=== PATIENT | male | born 1945 | race Caucasian/White ===

== ENCOUNTER 2016-09-01 11:02 | Emergency (ER) | payer MEDICARE, OTHER ==
[~2016-09-01 11:02] MED LIST: ALIGN4 MG PO; BAC PO; BENTYL10 PO; CONSTULOSE PO; FERROUS SULF325 M1 PO; FLEX PO; GLUCOPHXR PO; I20 PO; MULTIPLE VIT PO; MULTIVITAMI1 PO; NEO500 PO; OXYCOD PO; PR25 PO; PRILOSEC40 MG PO; PROBIOTIC PO; PROBIOTICS; ULTRAM50 PO; VIT B-SIX 50 MG50 MG PO; VITAMIN B-121000 MC1 SL; VITAMIN C PO; VITAMIN D1000 UNI1 PO; VITC500 PO; XIFAXAN550 MG PO; ZEGERID1 CA1 PO
[2016-09-01 12:06] LABS: BASOPHILS 0.8 %; BASOPHILS ABSOLUTE 0.03 10/3/uL (0.0-0.16); EOSINOPHILS 5.1 %; HEMATOCRIT 39.5 % (40.0-51.0); HEMOGLOBIN 13.8 g/dL (13.6-17.8); LYMPHOCYTES 34.4 %; LYMPHOCYTES ABSOLUTE 1.35 10/3/uL (0.67-4.30); MEAN CORPUS HGB CONC 34.9 g/dL (32.0-36.0); MEAN CORPUSCULAR HEMOGLOB 32.2 pg (26.0-34.0); MEAN CORPUSCULAR VOLUME 92.1 fL (80-100); MONOCYTES 7.9 %; MONOCYTES ABSOLUTE 0.31 10/3/uL (0.21-1.20); NEUTROPHILS 51.8 %; NEUTROPHILS ABSOLUTE 2.03 10/3/uL (2.02-8.40); PLATELET COUNT 62 10/3/uL (150-400); RBC DISTRIBUTION WIDTH 13.8 % (12.0-16.0); RED CELL COUNT 4.29 10/6/uL (4.7-6.1); WHITE BLOOD CELLS 3.9 10/3/uL (4.5-10.5)
[2016-09-01 12:07] LABS: MANUAL DIFF NO %
[2016-09-01 12:12] LABS: INTERNATIONAL NORMAL RATI 1.4 UNITS (-); PARTIAL THROMBO TIME 36.7 SEC (22.5-37.2)
[2016-09-01 12:22] LABS: BUN (BLOOD UREA NITROGEN) 11 MG/DL (6-23); CALCIUM, SERUM 9.1 MG/DL (8.5-10.4); CHLORIDE, SERUM 104 MMOL/L (96-112); CO2 (CARBON DIOXIDE) 29 MMOL/L (24-34); CREATININE 1.11 MG/DL (0.70-1.30); GFR AFRICAN AMERICAN 78 ML/MIN (>=60); GFR NON AFRICAN AMERICAN 67 ML/MIN (>=60); SODIUM, SERUM 141 MMOL/L (135-148)
[2016-09-01 12:23] LABS: GLUCOSE, SERUM 170 MG/DL (60-99)
[2016-09-01 12:25] LABS: CHEST PAIN PROFILE TAT 0 Hrs 25 Mins; TROPONIN I 0.05 NG/ML (<0.05)
[2016-09-01 12:38] LABS: PLATELET ESTIMATE DEC (ADEQUATE); RBC MORPHOLOGY NORM (NORMAL)
[2016-12-24] MEDS ORDERED: XIFAXAN550 MG PO (22:31)
[2016-12-24] MEDS ORDERED: CONSTULOSE PO (22:32)
[2016-12-24] MEDS ORDERED: VITC500 PO (22:33)
[2016-12-24] MEDS ORDERED: FERROUS SULF325 M1 PO (22:34)
[2016-12-24] MEDS ORDERED: VITAMIN D31000 UNIT PO (22:34)
[2016-12-24] MEDS ORDERED: PRILOSEC40 MG PO (22:35)
[2016-12-24] MEDS ORDERED: MULTIVIT/MIN PO (22:36)
[2016-12-24] MEDS ORDERED: I20 PO (22:36)
[2016-12-24] MEDS ORDERED: V-R VIT B-6100 MG PO (22:37)
[2016-12-24] MEDS ORDERED: PROBIOTIC PO (22:37)
[2016-12-24] MEDS ORDERED: ULTRAM50 PO (22:42)
[2016-12-27] MEDS ORDERED: SPIRO25 PO (10:44)
[2016-12-27] MEDS ORDERED: NYSTATPOW TOP (10:45)
== END 2016-09-01 15:18 | disposition home or self-care (01) ==
LOC: ER 11:02
PROVIDERS: Emergency Medicine
DX: H83.09 Labyrinthitis, unspecified ear (principal); K74.60 Unspecified cirrhosis of liver; K21.9 Gastro-esophageal reflux disease without esophagitis; D64.9 Anemia, unspecified; Z85.6 Personal history of leukemia; Z86.19 Personal history of other infectious and parasitic diseases; Z87.440 Personal history of urinary (tract) infections; Z88.0 Allergy status to penicillin; Z88.1 Allergy status to other antibiotic agents; Z88.6 Allergy status to analgesic agent; Z88.8 Allergy status to other drugs, medicaments and biological substances; Z79.899 Other long term (current) drug therapy
CPT/HCPCS: 70450; 71010; 80048; 82140; 83735; 84484; 85025; 85610; 85730; 93005; 99284